=== PATIENT | male | born 1995 | race Hispanic/Latino ===

== ENCOUNTER 2018-11-03 23:19 | Emergency (ER) | payer OTHER ==
[2018-11-03 23:34] VITALS: O2SAT 98
--- NOTE | 2018-11-04 00:48 | C.PDOC ---
History Of Present Illness 23 year old male presents complaining of a pulling sensation to his right groin intermittently for the past week. Patient states today the pain has been more constant with shooting pain towards the perineum and pressure sensation to the right testicle. He states he spoke with an online doctor who recommended him to come to the ER for an US. Denies trauma, strenuous activity, dysuria, or hematuria. Time Seen by Provider: 11/03/18 23:51 Chief Complaint (Nursing): Male Genitourinary History Per: Patient History/Exam Limitations: no limitations Onset/Duration Of Symptoms: Days, Intermittent Episodes Current Symptoms Are (Timing): Still Present Quality Of Discomfort: Pressure, Other (Pulling) Associated Symptoms: denies: Urinary Symptoms Alleviating Factors: None Recent travel outside of the [place]: No Past Medical History Reviewed: Historical Data, Nursing Documentation, Vital Signs Vital Signs: Last Vital Signs Temp 98.1 F 11/03/18 23:29 Pulse 107 H 11/03/18 23:29 Resp 18 11/03/18 23:29 BP 161/94 H 11/03/18 23:29 Pulse Ox 98 11/03/18 23:29 Primary Care Provider: FAMILY PROVIDER,NO - Medical History PMH: Depression Family History: States: Unknown Family Hx - Social History Hx Alcohol Use: No Hx Substance Use: No - Immunization History Hx Tetanus Toxoid Vaccination: No Hx Influenza Vaccination: No Hx Pneumococcal Vaccination: No Review Of Systems Constitutional: Negative for: Fever, Chills Genitourinary: Positive for: Other (Right groin pain). Negative for: Dysuria, Hematuria Physical Exam - Physical Exam Appears: Non-toxic Skin: Normal Color, Warm Head: Atraumatic, Normacephalic Eye(s): bilateral: Normal Inspection Gastrointestinal/Abdominal: Soft, No Tenderness Male Genital: No Testicular Tenderness, No Testicular Swelling, No Inguinal Tenderness, No Inguinal Swelling, No Scrotal Swelling, Other (No perineal tenderness or swelling. No bulging, hernia, erythema, or warmth. ) Extremity: Normal ROM (x4) Neurological/Psych: Oriented x3, Normal Speech ED Course And Treatment O2 Sat by Pulse Oximetry: 98 (Room air) Pulse Ox Interpretation: Normal Progress Note: Testicular US ordered. Patient is resting comfortably in no acute distress, vitals are stable, US results discussed with patient, will discharge home with instructions to follow up with PMD/urology or return if symptoms worsen. Disposition Counseled Patient/Family Regarding: Diagnosis, Need For Followup - Disposition Referrals: Dest[facility] [Outside] Disposition: HOME/ ROUTINE Disposition Time: 01:56 Condition: STABLE Additional Instructions: Tylenol or advil for pain Follow up with your doctor or in clinic Return to ER if worse Instructions: Groin Strain (DC) Forms: [facility] ([place]) - Clinical Impression Clinical Impression: Strain of right inguinal muscle - PA / WOM[employer]MENT [employer] / Resident Statement MD/DO has reviewed & agrees with the documentation as recorded. - Scribe Statement The provider has reviewed the documentation as recorded by the Scribe Bruno Mandujano All medical record entries made by the Scribe were at my direction and personally dictated by me. I have reviewed the chart and agree that the record accurately reflects my personal performance of the history, physical exam, medical decision making, and the department course for this patient. I have also personally directed, reviewed, and agree with the discharge instructions and disposition.
[2018-11-04 02:21] VITALS: BP 146/98; PULSE 80; RESP 20; TEMP 99.1
--- NOTE | 2018-11-04 13:35 | US ---
Date of service: 11/04/2018 HISTORY: right testicle area TECHNIQUE: Realtime sonography through the scrotum with color and doppler flow. COMPARISON: None Available. FINDINGS: RIGHT TESTICLE: Measures 4.6 x 2.3 x 3.0 cm. Tiny echogenicities throughout the right testicle compatible with microlithiasis noted. Vascular flow to the right testicle a is present and appears within normal limits. RIGHT EPIDIDYMIS: Epididymal head measures 1.3 x 0.9 x 1.1 cm. normal flow. Septated right epididymal head cyst measuring 0.3 x 0.2 x 0.2 cm. LEFT TESTICLE: Measures 5.2 x 2.4 x 3.3 cm. Tiny echogenicities throughout the left testicle compatible with microlithiasis noted. Vascular flow to the left testicle a is present and appears within normal limits. LEFT EPIDIDYMIS: Epididymal head measures 1.4 x 1.3 x 1.5 cm. Normal flow. Incidentally noted is a 0.2 x 0.2 x 0.2 cm epididymal head cyst. HYDROCELE: Bilateral hip hydroceles minimal on the left-mild moderate on the right. On the right has low level echoes within it compatible with debris. VARICOCELE: None. OTHER FINDINGS: None. IMPRESSION: Vascular flow to each testicle is within normal limits. No imaging findings seen at this time to suggest the torsion. No intratesticular masses. Bilateral microlithiasis noted. Bilateral epididymal head cyst that on the right is larger than that on the left. Bilateral hydroceles that on the right is larger than than left. That on the right has debris. Concordant results (preliminary interpretation) provided by [facility].
== END 2018-11-04 02:20 | disposition home or self-care (01) ==
LOC: C.ER 23:19
DX: S39.011A Strain of muscle, fascia and tendon of abdomen, initial encounter (principal); X58.XXXA Exposure to other specified factors, initial encounter